=== PATIENT | male | born 1970 | race Two or more races ===

== ENCOUNTER → 2016-05-18 | Outpatient (CLI) | payer BC, OTHER ==
--- NOTE | 2016-05-18 15:46 | CR ---
EXAMINATION: Two-view chest (PA and Lateral views). HISTORY: Cough. FINDINGS: The trachea is midline. The cardiomediastinal silhouette is within normal limits. Mild hazy infiltra te is noted within the right upper lobe laterally. There is a granuloma within the left upper lobe. No pleural effusion or pneumothorax. Osseous structures appear unremarkable. IMPRESSION: Trace hazy infiltrate within the right upper lobe laterally.
== END ==
LOC: MW.CHFP 15:10
PROVIDERS: ATTEND Physician Assistant
DX: R05 Cough (principal)
CPT/HCPCS: 36415; 71020; 71020-26; 85025

== ENCOUNTER 2024-12-07 17:43 | Emergency (ER) | payer SELFPAY ==
[2024-12-07 18:35] LABS: BASOPHILS ABSOLUTE AUTO 0.02 K/uL (0.00-0.20); BASOPHILS PERCENT AUTO 0.3 % (0.0-1.0); EOSINOPHILS ABSOLUTE AUTO 0.13 K/uL (0.00-0.45); EOSINOPHILS PERCENT AUTO 1.9 % (0.0-6.0); IMMATURE GRAN ABSOLUTE AUTO 0.02 K/uL (0.00-0.05); IMMATURE GRAN PERCENT AUTO 0.3 % (0.0-0.4); LYMPHOCYTES ABSOLUTE AUTO 1.96 K/uL (1.00-4.80); LYMPHOCYTES PERCENT AUTO 28.2 % (24.0-44.0); MEAN PLATELET VOLUME 8.1 fL (9.4-12.4); MONOCYTES ABSOLUTE AUTO 0.47 K/uL (0.00-0.80); MONOCYTES PERCENT AUTO 6.8 % (0.0-8.0); NEUTROPHILS ABSOLUTE AUTO 4.34 K/uL (1.80-7.70); NEUTROPHILS PERCENT AUTO 62.5 % (41.0-71.0); NRBC ABSOLUTE 0.00 K/uL (0.00-0.02); NRBC PERCENT 0.0 /100WBC (0.0-0.2); PLATELET COUNT,PLT 303 K/uL (150-400); RED BLOOD CELL COUNT 5.37 M/uL (4.52-5.90); WHITE BLOOD CELL COUNT,WBC 6.94 K/uL (3.9-11.3)
[2024-12-07] MEDS: Iopamidol 755 MG/ML 500 ML Multipack Bottle IVPUSH STA (18:36)
[2024-12-07 19:15] LABS: A/G RATIO 0.8 (0.9-1.6); ALANINE AMINOTRANSFERASE,ALT 34.0 IU/L (14-63); ASPARTATE AMNIOTRANSFERASE,AST 20.0 IU/L (15-37); BILIRUBIN TOTAL 0.5 mg/dL (0.2-1.0); BLOOD UREA NITROGEN,BUN 19.0 mg/dL (7.0-18.0); CARBON DIOXIDE,CO2 24.9 mmol/L (21.0-32.0); CHLORIDE,CL 101.0 mmol/L (98-107); CREATININE 1.4 mg/dL (0.8-1.3); EST CRCL DRUG DOSING (CG) 53.69 mL/min; GLUCOSE RANDOM 123.0 mg/dL (74-106); POTASSIUM,K 4.1 mmol/L (3.5-5.1); PROTEIN TOTAL,TP 8.8 g/dL (6.4-8.2); SODIUM,NA 137.0 mmol/L (136-148)
[2024-12-07 19:24] LABS: ESTIMATED GFR 60.0 mL/min (>60)
[2024-12-07] MEDS: cefTRIAXone 1 GM in Water For Injection, Sterile 10 ML IVPUSH ONE (19:29)
[2024-12-07] MEDS: Ketorolac 30 MG/ML SDV IVPUSH ONE (19:53)
== END 2024-12-07 19:58 | disposition home or self-care (01) ==
LOC: MW.ED 17:43
DX: M70.41 Prepatellar bursitis, right knee (principal); L03.115 Cellulitis of right lower limb; Z79.899 Other long term (current) drug therapy
CPT/HCPCS: 36415; 73701; 80053; 85025; 85652; 86140; 96361; 96374; 96375; 99284; J0696; J1885; J7030; Q9967; 99283